=== PATIENT | female | born 1950 | race Caucasian/White ===

== ENCOUNTER 2017-09-30 06:08 | Day surgery (SDC) | payer OTHER ==
[~2017-09-30] VITALS: Ht 160 cm; Wt 77.7 kg
[~2017-09-30 06:08] MED LIST: ALBU90OI INH; ASPI81CH PO; BUDE6HFA; Crutch1 EACH MISC; FLUT1DIS5 INH; GLIM2 PO; INSULANPEN; LORTAB 10 MG-3473 ML PO; METF500 PO; MONT10T PO; NASACORT10.8 ML; Prevacid Soluta30 MG PO; SUPHEDRINE SINU30 MG; TRAM50 PO; ZYRTEC10 M1 PO
[2017-09-30] MEDS ORDERED: LOSA25 PO (06:58)
[2017-09-30] MEDS ORDERED: VITAMIN D2000 UNIT PO (06:59)
== END 2017-09-30 08:29 | disposition home or self-care (01) ==
LOC: ORSCSDS 06:08
PROVIDERS: Orthopaedic Surgery
PROC: 01N50ZZ Release Median Nerve, Open Approach (ICD-10-PCS; principal; 2017-09-30 07:30)
DX: G56.02 Carpal tunnel syndrome, left upper limb (principal); E11.9 Type 2 diabetes mellitus without complications; K21.9 Gastro-esophageal reflux disease without esophagitis; J45.909 Unspecified asthma, uncomplicated; Z79.899 Other long term (current) drug therapy; Z79.82 Long term (current) use of aspirin; Z79.4 Long term (current) use of insulin
CPT/HCPCS: 82947; J0690; J2250; J2405; J7120

== ENCOUNTER → 2018-06-22 | Outpatient (CLI) | payer MEDICARE ==
[~2018-06-22] MED LIST changes: +LOSA25 PO; +VITAMIN D2000 UNIT PO
== END | disposition home or self-care (01) ==
LOC: LAB SHORT 17:49 → LAB 17:49
DX: L57.0 Actinic keratosis (principal); B35.1 Tinea unguium; L60.2 Onychogryphosis
CPT/HCPCS: 88305; 88312

== ENCOUNTER 2018-08-31 08:01 | Day surgery (SDC) | payer MEDICARE ==
[~2018-08-31] VITALS: Ht 160 cm; Wt 77.6 kg
[~2018-08-31 08:01] MED LIST changes: +Glucophage1000 MG PO; +LANS15EC PO; +LO-DOSE ASPIRIN81 MG PO
--- NOTE | 2018-08-31 09:04 | NUR ---
08/31/18 0904 Pedro Long ATTEMPTED IV IN RIGHT HAND AND IT WOULD NOT THREAD. IV STARTED IN RIGHT AC. PATIENT TOLERATED WELL.
== END 2018-08-31 11:05 | disposition home or self-care (01) ==
LOC: ORSCSDS 08:01
DX: R19.5 Other fecal abnormalities (principal); D12.3 Benign neoplasm of transverse colon; K57.30 Diverticulosis of large intestine without perforation or abscess without bleeding; K64.4 Residual hemorrhoidal skin tags; K64.8 Other hemorrhoids; I10 Essential (primary) hypertension; E11.9 Type 2 diabetes mellitus without complications; K21.9 Gastro-esophageal reflux disease without esophagitis; J45.909 Unspecified asthma, uncomplicated; Z79.82 Long term (current) use of aspirin; Z79.4 Long term (current) use of insulin; Z79.899 Other long term (current) drug therapy
CPT/HCPCS: 82947; 88305; J2704; J7120

== ENCOUNTER → 2020-06-13 | Outpatient (CLI) | payer BC ==
[2020-06-13 19:48] LABS: BASOPHILS ABSOLUTE AUTO 0.05 K/mm3 (0.00-0.23); BASOPHILS PERCENT AUTO 1 % (0-2); EOSINOPHILS PERCENT AUTO 4 % (0-6); Hematocrit 32.9 % (33.0-51.0); Hemoglobin 10.6 g/dL (11.5-16.0); IMMATURE GRAN ABSOLUTE AUTO 0.01 K/mm3 (0.00-0.10); IMMATURE GRAN PERCENT AUTO 0 % (0-1); LYMPHOCYTES ABSOLUTE AUTO 2.48 K/mm3 (0.84-5.20); LYMPHOCYTES PERCENT AUTO 26 % (21-46); MONOCYTES ABSOLUTE AUTO 0.51 K/mm3 (0.16-1.47); MONOCYTES PERCENT AUTO 5 % (4-13); Mean Corpuscular HGB 29.9 pg (26.0-34.0); Mean Corpuscular HGB Conc 32.2 g/dL (31.5-36.5); Mean Corpuscular Volume 93 fL (80-100); Mean Platelet Volume 10.2 fL (9.1-12.4); NEUTROPHILS PERCENT AUTO 64 % (41-73); Platelet Count 240 K/mm3 (150-400); RDW Coefficient Variation 12.5 % (11.7-14.2); RDW Standard Deviation 43.3 fL (35.1-46.3); Red Blood Cell Count 3.54 M/mm3 (3.80-5.20); White Blood Cell Count 9.65 K/mm3 (4.00-11.30)
[2020-06-13 20:09] LABS: Albumin, Blood 3.8 g/dL (3.4-5.0); Albumin/Globulin Ratio 1.2 (0.8-1.8); Bilirubin, Total 0.3 mg/dL (0.1-1.0); Bun/Creatinine Ratio 32.7 (12.0-20.0); Calcium, Blood 9.4 mg/dL (8.5-10.1); Creatinine, Blood 1.07 mg/dL (0.40-1.00); Globulin, Blood 3.3 g/dL (2.2-4.0); Potassium, Blood 4.3 mmol/L (3.5-5.5); Total Protein, Blood 7.1 g/dL (6.4-8.2)
== END ==
LOC: LAB 17:30 → LAB SHORT 17:30
PROVIDERS: Internal Medicine
DX: D64.9 Anemia, unspecified (principal); I10 Essential (primary) hypertension; Z88.1 Allergy status to other antibiotic agents; Z88.5 Allergy status to narcotic agent; Z88.6 Allergy status to analgesic agent
CPT/HCPCS: 80053; 83036; 85025

== ENCOUNTER 2022-06-17 09:51 | Inpatient (IN) | payer MEDICARE ==
[2022-06-17] VITALS (8 sets, daily range): BP systolic 127–150; BP diastolic 67–82
[~2022-06-17] VITALS: Ht 157.5 cm; Wt 77.1 kg
[2022-06-17 10:26] LABS: BASOPHILS ABSOLUTE AUTO 0.03 K/mm3 (0.00-0.23); BASOPHILS PERCENT AUTO 0 % (0-2); EOSINOPHILS ABSOLUTE AUTO 0.09 K/mm3 (0.00-0.68); EOSINOPHILS PERCENT AUTO 1 % (0-6); Hematocrit 31.1 % (33.0-51.0); IMMATURE GRAN ABSOLUTE AUTO 0.03 K/mm3 (0.00-0.10); IMMATURE GRAN PERCENT AUTO 0 % (0-1); LYMPHOCYTES ABSOLUTE AUTO 0.94 K/mm3 (0.84-5.20); LYMPHOCYTES PERCENT AUTO 9 % (21-46); MONOCYTES ABSOLUTE AUTO 0.53 K/mm3 (0.16-1.47); MONOCYTES PERCENT AUTO 5 % (4-13); Mean Corpuscular HGB 29.9 pg (26.0-34.0); Mean Corpuscular HGB Conc 32.2 g/dL (31.5-36.5); Mean Corpuscular Volume 93 fL (80-100); Mean Platelet Volume 9.3 fL (9.1-12.4); NEUTROPHILS PERCENT AUTO 85 % (41-73); Platelet Count 247 K/mm3 (150-400); RDW Coefficient Variation 13.1 % (11.7-14.2); RDW Standard Deviation 44.5 fL (35.1-46.3); Red Blood Cell Count 3.35 M/mm3 (3.80-5.20); White Blood Cell Count 10.92 K/mm3 (4.00-11.30)
[2022-06-17 10:35] LABS: Calcium, Ionized (POC) 1.28 mmol/L (1.10-1.46); Chloride (POC) 107 mmol/L (98-108); Creatinine (POC) 1.1 mg/dL (0.6-1.0); Glucose (ISTAT POC) 102 mg/dL (70-99); Hemoglobin (POC) 10.9 g/dL (12.0-16.0); Sodium (POC) 137 mmol/L (135-148); Total CO2 (POC) 22 mmol/L (21-32)
[2022-06-17 10:57] LABS: Albumin, Blood 3.3 g/dL (3.4-5.0); Albumin/Globulin Ratio 0.9 (0.8-1.8); Bilirubin, Total 0.4 mg/dL (0.1-1.0); Calcium, Blood 9.3 mg/dL (8.5-10.1); Creatinine, Blood 0.97 mg/dL (0.40-1.00); Globulin, Blood 3.6 g/dL (2.2-4.0); Potassium, Blood 5.2 mmol/L (3.5-5.5); Total Protein, Blood 6.9 g/dL (6.4-8.2)
[2022-06-17] MEDS ORDERED: PRAV20 PO (11:31)
[2022-06-17] MEDS ORDERED: BASAGLAR K100 UNIT/3 SC (11:31)
[2022-06-17] MEDS ORDERED: MONT10T PO (11:33)
[2022-06-17 11:58] LABS: Anti-Xa UFH, PHA Monitoring 0.51 IU/mL; International Normalized Ratio 0.93; Prothrombin Time Results 9.8 Sec (9.7-11.5)
--- NOTE | 2022-06-17 18:17 | NUR ---
SHIFT SUMMARY; ASSUMED CARE FROM [facility] FOLLOWING ANGIO WITH RIGHT RADIAL SITE. A/A/OX4, DENIES CP OR SOB, VSS. TR BAND AND ARM BOARD IN PLACE. DURING TR BAND RECOVERY HEMATOMA NOTED ABOVE BAND. PRESSURE APPLIED, [facility] RN NOTIFIED. EVALUATED IN ROOM BY ANA DEMPSEY, PRESSURE DRESSING PLACED BY ANA WITH COBAN. LEFT IN PLACE FOR 30MINS PER ANA'S INSTRUCTION THEN REMOVED. HEMATOMA NOT EXTENDED BEYOND PREVIOUS OUTLINE. TR BAND DEFLATED PER PROTOCOL. COBRA TRANSFER TO [facility]. TR BAND DEFLATED BUT LEFT IN PLACE PER CARDIOLOGY WITH ARMBOARD IN PLACE. NO BLEEDING, NO FURTHER SWELLING, HEMATOMA SOFT. REPORT TO TANIKA DEMPSEY AT [facility], TRANSFERRED WITH [facility] INFUSING AT 15UNITS/KG. REPORT TO TRANSFER CREW.
== END 2022-06-17 18:16 | disposition short-term general hospital (02) | DRG 282 ==
LOC: ER 09:51 → PCU 11:09 → ICUW 11:09 → PCU 11:47 → ICUW 13:08 → PCU 13:16
PROVIDERS: Student in an Organized Health Care Education/Training Program; ADMIT Internal Medicine Cardiovascular Disease
PROC: 4A023N7 Measurement of Cardiac Sampling and Pressure, Left Heart, Percutaneous Approach (ICD-10-PCS; principal; 2022-06-17)
PROC: B211YZZ Fluoroscopy of Multiple Coronary Arteries using Other Contrast (ICD-10-PCS; 2022-06-17)
PROC: B215YZZ Fluoroscopy of Left Heart using Other Contrast (ICD-10-PCS; 2022-06-17)
PROC: B240ZZ3 Ultrasonography of Single Coronary Artery, Intravascular (ICD-10-PCS; 2022-06-17)
DX: I21.4 Non-ST elevation (NSTEMI) myocardial infarction (principal); I25.10 Atherosclerotic heart disease of native coronary artery without angina pectoris; E11.9 Type 2 diabetes mellitus without complications; I10 Essential (primary) hypertension; E78.5 Hyperlipidemia, unspecified; R94.31 Abnormal electrocardiogram [ECG] [EKG]; J44.9 Chronic obstructive pulmonary disease, unspecified; Z90.49 Acquired absence of other specified parts of digestive tract; Z79.899 Other long term (current) drug therapy; Z79.51 Long term (current) use of inhaled steroids; Z79.52 Long term (current) use of systemic steroids; Z79.4 Long term (current) use of insulin; Z88.5 Allergy status to narcotic agent; Z88.1 Allergy status to other antibiotic agents; Z88.8 Allergy status to other drugs, medicaments and biological substances; Z79.891 Long term (current) use of opiate analgesic; Z79.84 Long term (current) use of oral hypoglycemic drugs; Z79.82 Long term (current) use of aspirin; Z96.642 Presence of left artificial hip joint; Z90.710 Acquired absence of both cervix and uterus; Z98.890 Other specified postprocedural states
CPT/HCPCS: 36415; 71045; 76937; 80047; 80053; 82947; 83735; 84484; 85014; 85025; 85347; 85520; 85610; 85730; 93005; 93010; 93458; 99152; 99153; 99285-25; A9270; C1769; C1887; C1894; J1644; J2250; J3010; J7030; J7050; Q9967

== ENCOUNTER 2022-07-30 19:23 | Emergency (ER) | payer MEDICARE ==
[~2022-07-30] VITALS: Ht 157.5 cm; Wt 69.4 kg
[~2022-07-30 19:23] MED LIST changes: +BASAGLAR K100 UNIT/3 SC; +PRAV20 PO
[2022-07-30 20:19] LABS: Albumin, Blood 3.3 g/dL (3.4-5.0); Albumin/Globulin Ratio 0.9 (0.8-1.8); BASOPHILS ABSOLUTE AUTO 0.05 K/mm3 (0.00-0.23); BASOPHILS PERCENT AUTO 0 % (0-2); Bilirubin, Total 0.2 mg/dL (0.1-1.0); Bun/Creatinine Ratio 20.9 (12.0-20.0); Calcium, Blood 9.7 mg/dL (8.5-10.1); Creatinine, Blood 1.15 mg/dL (0.40-1.00); EOSINOPHILS ABSOLUTE AUTO 0.69 K/mm3 (0.00-0.68); EOSINOPHILS PERCENT AUTO 6 % (0-6); Globulin, Blood 3.7 g/dL (2.2-4.0); Hematocrit 29.2 % (33.0-51.0); Hemoglobin 9.2 g/dL (11.5-16.0); IMMATURE GRAN ABSOLUTE AUTO 0.03 K/mm3 (0.00-0.10); IMMATURE GRAN PERCENT AUTO 0 % (0-1); LYMPHOCYTES ABSOLUTE AUTO 1.41 K/mm3 (0.84-5.20); LYMPHOCYTES PERCENT AUTO 12 % (21-46); MONOCYTES ABSOLUTE AUTO 0.46 K/mm3 (0.16-1.47); MONOCYTES PERCENT AUTO 4 % (4-13); Mean Corpuscular HGB 28.7 pg (26.0-34.0); Mean Corpuscular HGB Conc 31.5 g/dL (31.5-36.5); Mean Corpuscular Volume 91 fL (80-100); Mean Platelet Volume 9.9 fL (9.1-12.4); NEUTROPHILS PERCENT AUTO 78 % (41-73); Platelet Count 301 K/mm3 (150-400); Potassium, Blood 4.7 mmol/L (3.5-5.5); RDW Standard Deviation 43.3 fL (35.1-46.3); Red Blood Cell Count 3.21 M/mm3 (3.80-5.20); White Blood Cell Count 11.94 K/mm3 (4.00-11.30)
[2022-07-30] MEDS ORDERED: ASPI81CH PO (21:19)
[2022-07-30] MEDS ORDERED: GABA100 PO (21:19)
[2022-07-30] MEDS ORDERED: METOPROLOL TART25 MG PO (21:20)
[2022-07-30] MEDS ORDERED: METF500 PO (21:20)
[2022-07-30] MEDS ORDERED: LANSOPRAZOLE30 MG PO (21:20)
[2022-07-30] MEDS ORDERED: ATOR40TA PO (21:21)
[2022-07-30 21:28] LABS: Magnesium, Blood 2.1 mg/dL (1.6-2.4)
[2022-07-30 21:35] LABS: Thyroid Stimulating Hormone 0.734 uIU/mL (0.360-4.800)
[2022-07-31 00:13] VITALS: BP 109/73
== END 2022-07-31 00:11 | disposition home or self-care (01) ==
LOC: ER 19:23
PROVIDERS: Student in an Organized Health Care Education/Training Program
DX: R42 Dizziness and giddiness (principal); Z88.8 Allergy status to other drugs, medicaments and biological substances; Z88.5 Allergy status to narcotic agent; Z88.1 Allergy status to other antibiotic agents; Z79.899 Other long term (current) drug therapy; Z79.4 Long term (current) use of insulin; E11.9 Type 2 diabetes mellitus without complications
CPT/HCPCS: 80053; 83735; 83880; 84443; 84484; 85025; 96360; 96361; 99284-25; J7030

== ENCOUNTER → 2023-02-20 | Outpatient (CLI) | payer MEDICARE ==
[~2023-02-20] MED LIST changes: +ATOR40TA PO; +GABA100 PO; +LANSOPRAZOLE30 MG PO; +METOPROLOL TART25 MG PO
[2023-02-20 14:05] LABS: Creatinine, Urine Random 53.5 mg/dL (27.00-270.00)
[2023-02-20 14:07] LABS: Microalb/Creat Ratio UR, Rand 42.056 mg/g (0.000-30.000); Microalbumin, Random Urine 22.5 mg/L (0.000-20.000)
== END ==
LOC: LAB SHORT 12:03 → LAB 12:03
PROVIDERS: Family Medicine
DX: E11.65 Type 2 diabetes mellitus with hyperglycemia (principal); E11.319 Type 2 diabetes mellitus with unspecified diabetic retinopathy without macular edema; R80.9 Proteinuria, unspecified
CPT/HCPCS: 82043; 82570

== ENCOUNTER 2023-06-30 11:14 | Day surgery (SDC) | payer MEDICARE ==
[~2023-06-30] VITALS: Ht 157.5 cm; Wt 68.9 kg
[~2023-06-30 11:14] MED LIST changes: +Lactated Ringer's 1,000 ML IV ONE
[2023-06-30] MEDS ORDERED: CeFAZolin Sodium 2,000 MG VIAL ONE (11:21)
[2023-06-30] MEDS ORDERED: NS 50 ML IV ONE (11:22)
[2023-06-30] MEDS ORDERED: Lactated Ringer's 1,000 ML IV ONE (12:13)
[2023-06-30] MEDS ORDERED: Lidocaine HCl 2% 10 ML SDA ONE (13:08)
[2023-06-30] MEDS ORDERED: Midazolam HCl 1MG / ML 2ML Vial ONE (13:09)
[2023-06-30 13:48] VITALS: BP 129/68
== END 2023-06-30 14:12 | disposition home or self-care (01) ==
LOC: ORSCSDS 11:14
PROVIDERS: Orthopaedic Surgery
PROC: 01N50ZZ Release Median Nerve, Open Approach (ICD-10-PCS; principal; 2023-06-30 12:30)
DX: G56.03 Carpal tunnel syndrome, bilateral upper limbs (principal); I10 Essential (primary) hypertension; I25.10 Atherosclerotic heart disease of native coronary artery without angina pectoris; Z95.1 Presence of aortocoronary bypass graft; K21.9 Gastro-esophageal reflux disease without esophagitis; Z79.82 Long term (current) use of aspirin; Z79.84 Long term (current) use of oral hypoglycemic drugs; Z79.899 Other long term (current) drug therapy
CPT/HCPCS: 82947; J0690; J2001; J2250; J7120

== ENCOUNTER 2023-12-31 14:55 | Observation (INO) | payer MEDICARE ==
[~2023-12-31] VITALS: Ht 157.5 cm; Wt 69.0 kg
[~2023-12-31 14:55] MED LIST changes: -AZIT250 PO; -METO50ER PO; -PANT40 PO; -ROBITUSSIN HON237 ML PO; -Tessalon200 MG PO
[2023-12-31 16:56] LABS: Influenza A, PCR NEGATIVE (NEGATIVE); Influenza B, PCR NEGATIVE (NEGATIVE); Resp Syncytial Virus, PCR NEGATIVE (NEGATIVE); SARS-Cov-2 (COVID-19) PCR, MMC NEGATIVE (NEGATIVE)
[2023-12-31] MEDS ORDERED: MethylPREDNISolone Sod Succ 125 MG Vial IV ONE (17:30)
[2023-12-31] MEDS ORDERED: Benzonatate 100 MG Cap PO PRN ×2 (17:30→23:45)
[2023-12-31] MEDS ORDERED: Lactated Ringer's 1,000 ML IV ONE (17:30)
[2023-12-31] MEDS ORDERED: NS 1,000 ML IV SCH (18:20)
[2023-12-31] MEDS ORDERED: Ipratropium/Albuterol SulF 2.5-0.5MG/3 ML Amp INH PRN (18:20)
[2023-12-31] MEDS ORDERED: FLU VACC TS2024-25(6MOS UP)/PF 45 MCG/0.5 ML SYRINGE IM ONE (18:20)
[2023-12-31] MEDS ORDERED: Ondansetron HCl 2 MG / ML 2ML Vial IV PRN (18:20)
[2023-12-31] MEDS ORDERED: Enoxaparin 40 MG/0.4 ML SYR SC SCH (19:00)
[2023-12-31] MEDS ORDERED: METO50ER PO (19:16)
[2023-12-31] MEDS ORDERED: PANT40 PO (19:18)
[2023-12-31 19:56] VITALS: BP 140/85
[2023-12-31] MEDS ORDERED: Azithromycin 500 MG in NS 250 ML IV SCH (21:00)
[2023-12-31] MEDS ORDERED: Pantoprazole Sodium 40 MG Tab PO SCH (21:00)
[2023-12-31] MEDS ORDERED: Guaifenesin/Dextromethorphan Syrup 5 ML UDC PO PRN (23:45)
[2024-01-01] MEDS ORDERED: Acetaminophen 325 MG TABLET PO PRN (00:45)
--- NOTE | 2024-01-01 03:24 | NUR ---
SHIFT SUMMARY 73 YR F ADMITTED ON 12/31/23. FULL CODE. PT ARRIVED ON MEDICAL FLOOR EARLY THIS SHIFT. SHE IS A&O X 4 AND INDEPENDANT IN THE ROOM. SHE C/O HEADACHE AND ORDER FOR TYLENOL WAS OBTAINED. SHE HAS A HACKING COUGH BUT APPEARS TO COUGH MORE WHILE AWAKE THAN WHEN SLEEPING. HYPOTENSION HAS RESOLVED AND PT IS ACTUALLY HYPERTENSIVE AT TIMES. NS INFUSING @ 100. BED IN LOW POSITION AND CALL LIGHT IN REACH.
[2024-01-01 04:07] VITALS: BP 165/95
[2024-01-01 05:50] LABS: BASOPHILS ABSOLUTE AUTO 0.01 K/mm3 (0.00-0.23); BASOPHILS PERCENT AUTO 0 % (0-2); EOSINOPHILS PERCENT AUTO 0 % (0-6); Hematocrit 32.9 % (33.0-51.0); IMMATURE GRAN ABSOLUTE AUTO 0.02 K/mm3 (0.00-0.10); IMMATURE GRAN PERCENT AUTO 0 % (0-1); LYMPHOCYTES ABSOLUTE AUTO 0.57 K/mm3 (0.84-5.20); LYMPHOCYTES PERCENT AUTO 7 % (21-46); MONOCYTES ABSOLUTE AUTO 0.06 K/mm3 (0.16-1.47); MONOCYTES PERCENT AUTO 1 % (4-13); Mean Corpuscular HGB 30.7 pg (26.0-34.0); Mean Corpuscular HGB Conc 33.4 g/dL (31.5-36.5); Mean Corpuscular Volume 92 fL (80-100); Mean Platelet Volume 9.5 fL (9.1-12.4); NEUTROPHILS ABSOLUTE AUTO 7.13 K/mm3 (1.96-9.15); NEUTROPHILS PERCENT AUTO 92 % (41-73); Platelet Count 215 K/mm3 (150-400); RDW Coefficient Variation 12.7 % (11.7-14.2); RDW Standard Deviation 42.5 fL (35.1-46.3); Red Blood Cell Count 3.58 M/mm3 (3.80-5.20); White Blood Cell Count 7.79 K/mm3 (4.00-11.30)
[2024-01-01 07:02] LABS: Albumin, Blood 3.2 g/dL (3.4-5.0); Albumin/Globulin Ratio 0.9 (0.8-1.8); Bilirubin, Total 0.3 mg/dL (0.1-1.0); Calcium, Blood 9.9 mg/dL (8.5-10.1); Creatinine, Blood 0.89 mg/dL (0.40-1.00); Globulin, Blood 3.5 g/dL (2.2-4.0); Potassium, Blood 4.5 mmol/L (3.5-5.5); Total Protein, Blood 6.7 g/dL (6.4-8.2)
[2024-01-01] MEDS ORDERED: Insulin Human Lispro 100 Units/ML 3ML Syringe SC SCH (07:30)
[2024-01-01 07:57] VITALS: BP 164/83
[2024-01-01] MEDS ORDERED: Metoprolol Succinate 25 MG TABCR PO SCH (09:00)
[2024-01-01] MEDS ORDERED: Aspirin 81 MG Chew PO SCH (09:00)
[2024-01-01 09:40] LABS: Source, Urine Clean Catch
[2024-01-01 09:55] LABS: Appearance, Urine Clear (Clear); Bilirubin, Urine Neg (Neg); Blood, Urine Neg (Neg); Color, Urine Yellow (P-Yellow); Glucose Qualitative, Urine 4+ (Neg); Ketones, Urine 1+ (Neg); Leukocyte Esterase, Urine Neg (Neg); Nitrite, Urine Neg (Neg); Protein, Urine Neg (Neg); Urobilinogen, Urine NORM (Normal)
[2024-01-01] MEDS ORDERED: AZIT250 PO (15:01)
[2024-01-01] MEDS ORDERED: Tessalon200 MG PO (15:02)
[2024-01-01] MEDS ORDERED: ROBITUSSIN HON237 ML PO (15:06)
--- NOTE | 2024-01-01 16:06 | NUR ---
PT DISCHARGED TO HOME. PT PROVIDED WITH AND EDUCATED ON DISCHARGE INSTRUCTIONS. ALL VALUABLES RETURNED TO THE PT AT TIME OF DISCHARGE.
[2024-01-01] MEDS ORDERED: Insulin Glargine-Yfgn 100 Unit/mL 3 ML SYR SC SCH (21:00)
[2024-01-03 03:56] LABS: B PERTUSSIS/PARAPERTUSS SOURCE Not Provided; BORD PARAPERTUSSIS BY PCR Not Detected; BORDETELLA PERTUSSIS BY PCR Not Detected
== END 2024-01-01 15:58 | disposition home or self-care (01) ==
LOC: ER 14:55 → MEDS 14:56 → ENPENDDIS 01-01 14:47 → MEDS 01-01 15:58
PROVIDERS: Student in an Organized Health Care Education/Training Program; ADMIT Internal Medicine
DX: N17.9 Acute kidney failure, unspecified (principal); I95.9 Hypotension, unspecified; J20.9 Acute bronchitis, unspecified; E86.0 Dehydration; E11.9 Type 2 diabetes mellitus without complications; I10 Essential (primary) hypertension; I25.2 Old myocardial infarction; Z79.4 Long term (current) use of insulin; Z79.82 Long term (current) use of aspirin; Z79.84 Long term (current) use of oral hypoglycemic drugs; Z79.899 Other long term (current) drug therapy; Z88.5 Allergy status to narcotic agent; Z88.1 Allergy status to other antibiotic agents; Z88.8 Allergy status to other drugs, medicaments and biological substances; Z90.710 Acquired absence of both cervix and uterus; Z90.49 Acquired absence of other specified parts of digestive tract; R05.1 Acute cough; R07.89 Other chest pain
CPT/HCPCS: 0241U; 36415; 71045; 71046; 76770; 80053; 81003; 82947; 84484; 85025; 87798; 96365; 96372; 96374; 99285-25; A9270; G0378; J0456; J1650; J1815; J2919; J7030; J7050; J7120

== ENCOUNTER → 2023-12-31 | Outpatient (CLI) | payer MEDICARE ==
[~2023-12-31] MED LIST changes: +AZIT250 PO; -Lactated Ringer's 1,000 ML IV ONE; +METO50ER PO; +PANT40 PO; +ROBITUSSIN HON237 ML PO; +Tessalon200 MG PO
[2023-12-31 13:47] LABS: BASOPHILS ABSOLUTE AUTO 0.05 K/mm3 (0.00-0.23); BASOPHILS PERCENT AUTO 1 % (0-2); EOSINOPHILS ABSOLUTE AUTO 0.19 K/mm3 (0.00-0.68); EOSINOPHILS PERCENT AUTO 3 % (0-6); Hematocrit 37.3 % (33.0-51.0); Hemoglobin 12.3 g/dL (11.5-16.0); IMMATURE GRAN ABSOLUTE AUTO 0.01 K/mm3 (0.00-0.10); IMMATURE GRAN PERCENT AUTO 0 % (0-1); LYMPHOCYTES ABSOLUTE AUTO 1.05 K/mm3 (0.84-5.20); LYMPHOCYTES PERCENT AUTO 16 % (21-46); MONOCYTES PERCENT AUTO 9 % (4-13); Mean Corpuscular HGB 30.2 pg (26.0-34.0); Mean Corpuscular Volume 92 fL (80-100); Mean Platelet Volume 9.2 fL (9.1-12.4); NEUTROPHILS ABSOLUTE AUTO 4.59 K/mm3 (1.96-9.15); NEUTROPHILS PERCENT AUTO 71 % (41-73); Platelet Count 249 K/mm3 (150-400); RDW Coefficient Variation 12.6 % (11.7-14.2); RDW Standard Deviation 41.7 fL (35.1-46.3); Red Blood Cell Count 4.07 M/mm3 (3.80-5.20); White Blood Cell Count 6.49 K/mm3 (4.00-11.30)
[2023-12-31 14:01] LABS: Albumin, Blood 3.8 g/dL (3.4-5.0); Albumin/Globulin Ratio 1.1 (0.8-1.8); Bilirubin, Total 0.4 mg/dL (0.1-1.0); Bun/Creatinine Ratio 11.2 (12.0-20.0); Calcium, Blood 11.3 mg/dL (8.5-10.1); Creatinine, Blood 1.43 mg/dL (0.40-1.00); Globulin, Blood 3.6 g/dL (2.2-4.0); Potassium, Blood 4.9 mmol/L (3.5-5.5); Total Protein, Blood 7.4 g/dL (6.4-8.2)
== END ==
LOC: LAB SHORT 13:42 → LAB 13:42
PROVIDERS: Family Medicine
DX: R07.89 Other chest pain (principal)
CPT/HCPCS: 80053; 84484; 85025